=== PATIENT | female | born 1950 | race Caucasian/White ===

== ENCOUNTER 2021-01-21 10:27 | Day surgery (SDC) | payer MEDICARE ==
[2021-01-21] VITALS (9 sets, daily range): BP systolic 106–143; BP diastolic 60–76
[~2021-01-21] VITALS: Ht 172.7 cm; Wt 64.8 kg
[2021-01-21] MEDS ORDERED: LUTE6TAB PO (11:09)
[2021-01-21] MEDS ORDERED: ASCO500C17 PO (11:09)
[2021-01-21] MEDS ORDERED: CHOL100046 PO (11:09)
[2021-01-21] MEDS ORDERED: MILK500C PO (11:09)
[2021-01-21] MEDS ORDERED: ASHW300C (11:09)
[2021-01-21] MEDS ORDERED: OMEGA 3 PO (11:09)
[2021-01-21] MEDS ORDERED: MULT-1085 PO (11:09)
[2021-01-21] MEDS ORDERED: COLLAGEN ULTRA PO (11:09)
[2021-01-21] MEDS ORDERED: LIDOcaine/PRILOcaine 5gm cream TP ONE (11:10)
[2021-01-21] MEDS ORDERED: normal saline 1,000 ML IV SCH (11:10)
[2021-01-21] MEDS ORDERED: diphenhydrAMINE 25mg capsule PO PRN (11:10)
[2021-01-21] MEDS ORDERED: LORazepam 0.5 MG tablet PO PRN (11:10)
[2021-01-21] MEDS ORDERED: fentaNYL/PF 50MCG/1 ML 2ML syringe ONE (11:41)
[2021-01-21] MEDS ORDERED: midazolam 1 mg/ML 2ml injection ONE (11:41)
[2021-01-21] MEDS ORDERED: iohexol 350MG/ML 100ml bottle IV ONE (11:41)
[2021-01-21] MEDS ORDERED: heparin 1,000unit/ml 10ml vial 10 ML ONE (11:41)
[2021-01-21] MEDS ORDERED: verapamil 2.5 mg/ml inj IV ONE (11:41)
[2021-01-21] MEDS ORDERED: nitroGLYCERIN-Tridil 50MG/D5W 250 ML IV ONE (11:42)
[2021-01-21] MEDS ORDERED: LIDOcaine 1% (10mg/ml)w/preservative injection 20ml MDV ONE (11:44)
[2021-01-21 11:46] LABS: PARTIAL THROMBOPLASTIN TIME 25 SECONDS (22-32)
[2021-01-21] MEDS ORDERED: proCHLORperazine 10 MG/2 ml inj IV PRN (13:05)
[2021-01-21] MEDS ORDERED: HYDROcodone/acetaminophen 5mg/325mg tablet PO PRN (13:05)
[2021-01-21] MEDS ORDERED: ondansetron/PF 4mg/2ml inj IV PRN (13:05)
[2021-01-21] MEDS ORDERED: HYDROcodone/acetaminophen 10/325mg tab PO PRN (13:05)
[2021-01-21] MEDS ORDERED: nitroGLYCERIN 0.4mg SUBLingual tab SL PRN (13:05)
[2021-01-21] MEDS ORDERED: acetaminophen 325mg tablet PO PRN (13:05)
[2021-01-21] MEDS ORDERED: OXAZEpam 15mg capsule PO PRN (13:05)
== END 2021-01-21 15:30 | disposition home or self-care (01) ==
LOC: SSTAY O 10:27
PROVIDERS: ATTEND Internal Medicine Interventional Cardiology
DX: R94.39 Abnormal result of other cardiovascular function study (principal); R07.89 Other chest pain; I25.10 Atherosclerotic heart disease of native coronary artery without angina pectoris; Z79.01 Long term (current) use of anticoagulants; Z79.899 Other long term (current) drug therapy; Z87.891 Personal history of nicotine dependence
CPT/HCPCS: 36415; 85610; 85730; 93005; 93458; C1769; C1894; J1644; J2001; J2250; J3010; J7030; Q0163; Q9967; A4620; A5120; J3490